=== PATIENT | female | born 1975 | race Caucasian/White ===

== ENCOUNTER 2020-03-02 10:43 | Outpatient (CLI) | payer OTHER, SELFPAY ==
[2020-03-02 11:12] LABS: Basophils Absolute Auto 0.1 K/mm3 (0.0-0.1); Eosinophils Absolute Auto 0.3 K/mm3 (0-0.3); Eosinophils Percent Auto 4.6 % (0-4.4); Hematocrit 41.5 % (37.0-47.0); Hemoglobin 13.3 g/dL (12.0-15.0); Immature Granulocyte Absolute 0.02 K/mm3 (0.00-0.031); Immature Granulocyte Percent A 0.3 % (0-0.5); Lymphocytes Absolute Auto 2.28 K/mm3 (0.9-3.2); Lymphocytes Percent Auto 34.2 % (18.3-44.2); Mean Corpuscular Hemoglobin 27.4 pg (26-34); Mean Corpuscular Volume 85.4 fl (80-100); Mean Platelet Volume 11.9 fl (7.4-10.4); Monocytes Absolute Auto 0.4 K/mm3 (0.1-0.6); Monocytes Percent Auto 6.4 % (2.6-8.5); Neutrophils Absolute Auto 3.6 K/mm3 (1.3-6.7); Neutrophils Percent Auto 53.5 % (45.5-73.1); Platelet Count Result 271 k/mm3 (150-375); Red Blood Count 4.86 M/mm3 (4.2-5.4); Red Cell Distribution Width 13.6 % (11.5-14.5); White Blood Count 6.7 K/mm3 (4.5-10.0)
[2020-03-02 11:21] LABS: Add Urine Microscopic? YES; Appearance Urine Cloudy (Clear); Bacteria Urine Trace /hpf; Bilirubin Urine Negative (Negative); Blood Urine Negative (Negative); Color Urine Straw (Yellow); Glucose Urine UA Negative (Negative); Ketones Urine Negative (Negative); Leukocyte Esterase Ur Negative LEU/UL (NEGATIVE); Nitrate Urine Negative (Negative); Protein Urine Negative (Negative); RBC Urine 0-2 /hpf (0-2); Specific Grav Ur 1.005 (1.001-1.035); Squamous Epithelial Cell Urine Many /hpf (Few); Urobilinogen Urine Negative mg/dL (<2.0); WBC Urine 0-3 /hpf (0-3)
[2020-03-02 11:41] LABS: Erythrocyte Sedimentation Rate 13 mm/hr (0-20)
[2020-03-02 13:45] LABS: Alanine Aminotransferase 14 U/L (4-35); Albumin Level 4.4 g/dL (3.5-5.1); Alkaline Phosphatase 87 U/L (38-126); Aspartate Amino Transferase 24 U/L (14-36); Bilirubin,Total 0.3 mg/dL (0.2-1.3); Blood Urea Nitrogen 10 mg/dL (7-17); Calcium 9.1 mg/dL (8.4-10.2); Carbon Dioxide 26 mmol/L (22-30); Chloride 102 mmol/L (98-107); Estimated Glomerular Filt Rate > 60; Glucose 105 mg/dL (65-105); Sodium 135 mmol/L (137-145)
[2020-03-06 20:41] LABS: CRP, High Sensitivity 0.6 mg/L (***)
== END 2020-03-02 10:44 | disposition home or self-care (01) ==
PROVIDERS: PCP Family Medicine; Visit Provider Family Medicine
DX: R53.81 Other malaise (principal); R53.83 Other fatigue; N39.0 Urinary tract infection, site not specified; R50.9 Fever, unspecified; R63.5 Abnormal weight gain
CPT/HCPCS: 36415; 80053; 81001; 84443; 85025; 85652; 86141; 87077; 87086; 87088

== ENCOUNTER → 2020-03-12 13:20 | Outpatient (CLI) | payer OTHER, SELFPAY ==
--- NOTE | ~2020-03-12 | US_ITS ---
EXAMINATION: US transvaginal EXAM DATE: 03/12/2020 13:59 INDICATION: Pelvic pain, hypertrophy of uterus. TECHNIQUE: Pelvic transvaginal sonogram was performed. There are multiple grayscale and Doppler imag es available for interpretation. Comparison is made to prior examination from 05/10/2018. FINDINGS: Uterus measures 7.2 x 4.2 cm, with several small fibroids suspected largest measuring abou t 2 cm and a smaller fibroid measuring about 1 cm. Endometrial stripe measures 11 mm, within normal l imits. There is no free pelvic fluid. Right adnexa: The ovary measures 3.1 x 2.2 x 2.9 cm and is morphologically normal. Ovarian vascular f low confirmed. Left adnexa: The ovary measures 2.0 x 1.9 x 2.0 cm and is morphologically normal. Ovarian vascular fl ow confirmed. IMPRESSION: Small fibroids. Reviewed, dictated and finalized at location A. IMPRESSION: Small fibroids.
== END ==
PROVIDERS: PCP Family Medicine; Visit Provider Family Medicine
DX: D25.9 Leiomyoma of uterus, unspecified (principal)
CPT/HCPCS: 76830

== ENCOUNTER → 2020-04-02 08:50 | Outpatient (CLI) | payer OTHER, SELFPAY ==
--- NOTE | ~2020-04-02 | MM_ITS ---
EXAMINATION: MM diagnostic jessica BI w kevin HISTORY: Probably benign focal asymmetry of right breast; six-month follow-up TECHNIQUE: 3-D tomosynthesis images of both breasts were performed and synthetic 2-D images were gene rated. CAD analysis was submitted and interpreted. COMPARISON: 09/07/2018 diagnostic right digital mammogram and limited right breast ultrasound 03/29/2019 diagnostic right digital mammogram BREAST PARENCHYMAL COMPOSITION: There are scattered areas of fibroglandular density. FINDINGS: No suspicious mass or architectural distortion, malignant calcification, skin thickening or retraction or significant new or developing density is detected. IMPRESSION: 1. No mammographic evidence of malignancy 2. Routine mammographic screening follow-up is recommended BI-RADS Category 1: Negative Reviewed, dictated and finalized at location A.
== END ==
PROVIDERS: PCP Family Medicine; Visit Provider Family Medicine
DX: R92.8 Other abnormal and inconclusive findings on diagnostic imaging of breast (principal)
CPT/HCPCS: 77062; 77066; G0279

== ENCOUNTER 2020-12-27 10:19 | Outpatient (CLI) | payer OTHER, SELFPAY ==
[2020-12-27 10:14] LABS: Basophils Absolute Auto 0.1 K/mm3 (0.0-0.1); Eosinophils Absolute Auto 0.3 K/mm3 (0-0.3); Eosinophils Percent Auto 3.7 % (0-4.4); Hematocrit 40.7 % (37.0-47.0); Hemoglobin 13.1 g/dL (12.0-15.0); Immature Granulocyte Absolute 0.02 K/mm3 (0.00-0.031); Immature Granulocyte Percent A 0.3 % (0-0.5); Lymphocytes Absolute Auto 2.36 K/mm3 (0.9-3.2); Lymphocytes Percent Auto 33.2 % (18.3-44.2); Mean Corpuscular HGB Conc 32.2 g/dl (32-36); Mean Corpuscular Hemoglobin 28.4 pg (26-34); Mean Corpuscular Volume 88.1 fl (80-100); Mean Platelet Volume 11.5 fl (7.4-10.4); Monocytes Absolute Auto 0.6 K/mm3 (0.1-0.6); Monocytes Percent Auto 8.7 % (2.6-8.5); Neutrophils Absolute Auto 3.8 K/mm3 (1.3-6.7); Neutrophils Percent Auto 53.1 % (45.5-73.1); Platelet Count Result 279 k/mm3 (150-375); Red Blood Count 4.62 M/mm3 (4.2-5.4); Red Cell Distribution Width 13.2 % (11.5-14.5); White Blood Count 7.1 K/mm3 (4.5-10.0)
[2020-12-27 10:26] LABS: Potassium 4.2 mmol/L (3.4-5.0)
[2020-12-27 10:32] LABS: Alanine Aminotransferase 14 U/L (4-35); Albumin Level 4.5 g/dL (3.5-5.1); Alkaline Phosphatase 95 U/L (38-126); Anion Gap 6 mmol/L (8-16); Aspartate Amino Transferase 25 U/L (14-36); Bilirubin,Total 0.3 mg/dL (0.2-1.3); Blood Urea Nitrogen 12 mg/dL (7-17); Calcium 9.6 mg/dL (8.4-10.2); Carbon Dioxide 27 mmol/L (22-30); Chloride 102 mmol/L (98-107); Estimated Glomerular Filt Rate 60; Glucose 98 mg/dL (65-105); Sodium 135 mmol/L (137-145)
[2020-12-27 11:34] LABS: Folic Acid 17.1 ng/mL (2.76->20)
[2020-12-27 17:06] LABS: Add Urine Microscopic? NO; Appearance Urine Clear (Clear); Bilirubin Urine Negative (Negative); Blood Urine Negative (Negative); Color Urine Straw (Yellow); Glucose Urine UA Negative (Negative); Ketones Urine Negative (Negative); Leukocyte Esterase Ur Negative LEU/UL (Negative); Nitrate Urine Negative (Negative); Protein Urine Negative (Negative); Urobilinogen Urine Negative mg/dL (<2.0)
[2020-12-27 17:42] LABS: Specific Grav Ur 1.003 (1.001-1.035)
== END 2020-12-27 10:20 | disposition home or self-care (01) ==
LOC: ANHLAB 10:19
PROVIDERS: PCP Family Medicine; Visit Provider Family Medicine
DX: I95.9 Hypotension, unspecified (principal); E53.8 Deficiency of other specified B group vitamins; E87.1 Hypo-osmolality and hyponatremia
CPT/HCPCS: 36415; 80053; 81003; 82607; 82746; 84443; 85025

== ENCOUNTER 2021-05-02 07:52 | Outpatient (CLI) | payer OTHER, SELFPAY ==
--- NOTE | ~2021-05-02 | MM_ITS ---
EXAMINATION: MM screening jessica BI w kevin HISTORY: Screening TECHNIQUE: Craniocaudal and mediolateral oblique 3-D tomosynthesis images were obtained and synthetic 2-D images were generated. CAD analysis was submitted and interpreted. COMPARISON: Comparison to multiple prior studies sequentially, with oldest reviewed study dated 08/26. BREAST PARENCHYMAL COMPOSITION: The breasts are heterogeneously dense, which may obscure small masses . FINDINGS: There is no evidence of suspicious mass, calcification, or architectural distortion to sugg est malignancy in either breast. There has been no suspicious interval change. IMPRESSION: 1. No mammographic evidence of malignancy. 2. Recommend routine screening mammography in one year. BI-RADS Category 1: Negative Reviewed, dictated and finalized at location A.
== END 2021-05-02 07:53 | disposition home or self-care (01) ==
PROVIDERS: PCP Family Medicine; Visit Provider Family Medicine
DX: Z12.31 Encounter for screening mammogram for malignant neoplasm of breast (principal)
CPT/HCPCS: 77063; 77067

== ENCOUNTER 2021-08-01 15:25 | Outpatient (CLI) | payer OTHER, SELFPAY ==
--- NOTE | ~2021-08-01 | US_ITS ---
EXAMINATION: US transvaginal DATE: 08/01/2021 16:01 INDICATION: Enlarged uterus. Comparison:Enlarged uterus TECHNIQUE: Multiple transabdominal and endovaginal sonographic images of the pelvis performed. FINDINGS: The uterus measures 8.7 x 3.9 x 4.7 cm. There are multiple ill-defined anomaly hypoechoic m asses of the uterus, consistent with fibroids. Largest fibroid measures 2.5 x 2.3 x 2.1 cm. There are multiple nabothian cysts. The endometrial complex measures 9 mm. The right ovary measures 2.4 x 1.7 x 2.7 cm and the left ovary measures 3.2 x 1.9 x 1.6 cm. There is a 1.5 cm left ovarian cyst. There are small follicles in each ovary. Normal doppler signal in both ov harmony. There is no free fluid in the pelvis. There are no abnormal masses seen on either side. IMPRESSION: 1. Multiple uterine fibroids, largest measuring up to 2.5 cm. 2: Left ovarian cyst measuring 1.5 cm. Reviewed, dictated and finalized at location A. R POLLUTION SCIENTIST
== END 2021-08-01 15:26 | disposition home or self-care (01) ==
LOC: ANHIMG 15:27
PROVIDERS: PCP Family Medicine; Visit Provider Family Medicine
DX: D25.9 Leiomyoma of uterus, unspecified (principal); N83.202 Unspecified ovarian cyst, left side
CPT/HCPCS: 76830

== ENCOUNTER 2022-07-01 09:05 | Outpatient (CLI) | payer OTHER, SELFPAY | END 2022-07-01 09:06 | disposition home or self-care (01) | LOC: ANHSURGERY 09:11 | PROVIDERS: PCP Family Medicine; Visit Provider Urology | DX: Z01.818 Encounter for other preprocedural examination (principal); N39.3 Stress incontinence (female) (male) | CPT/HCPCS: 87086; 87088 ==

== ENCOUNTER 2022-07-02 16:17 | Outpatient (CLI) | payer OTHER, SELFPAY ==
--- NOTE | ~2022-07-02 | MM_ITS ---
EXAMINATION: MM screening jessica BI w kevin HISTORY: Screening TECHNIQUE: Craniocaudal and mediolateral oblique 3-D tomosynthesis images were obtained and synthetic 2-D images were generated. CAD analysis was submitted and interpreted. COMPARISON: Comparison to multiple prior studies sequentially, with oldest reviewed study dated 08/26. BREAST PARENCHYMAL COMPOSITION: There are scattered areas of fibroglandular density. FINDINGS: There is no evidence of suspicious mass, calcification, or architectural distortion to sugg est malignancy in either breast. There has been no suspicious interval change. IMPRESSION: 1. No mammographic evidence of malignancy. 2. Recommend routine screening mammography in one year. BI-RADS Category 1: Negative Reviewed, dictated and finalized at location A. GRATION SPECIALIST
== END 2022-07-02 16:18 | disposition home or self-care (01) ==
PROVIDERS: PCP Family Medicine; Visit Provider Family Medicine
DX: Z12.31 Encounter for screening mammogram for malignant neoplasm of breast (principal)
CPT/HCPCS: 77063; 77067

== ENCOUNTER 2022-07-04 01:01 | Day surgery (SDC) | payer OTHER, SELFPAY ==
[2022-06-26 14:08] VITALS: BMI 27.1
--- NOTE | 2022-06-26 14:13 | PC.NURSE ---
Report to the Outpatient Waiting Room, entrance under the green pavilion located off [facility], at time 6:00 on date 07/04/22. Planned Procedure Time: 7:30. Time changes happen often and if your time is changed the preop area will call you the afternoon before. - You and your visitor will be asked to self-screen and do not enter if you have any COVID symptoms. - We encourage only one visitor and NO visitors under age 16 are allowed at this time. Your visitor will receive communication by the phone number that is given day of service. - The patient visitor is requested to social distance or may leave the building when not with patient due to restrictions. - A mask is OPTIONAL within the hospital. Patients may have clear liquids (water, carbonated beverages, clear teas, apple juice) until 3 hours prior to surgery (4:30) with a maximum of 20 ounces. - No food from midnight until time of surgery Take the following medications with a SIP of water the morning of surgery: INHALERS, SERTRALINE Medications to discontinue per physician: N/A Date to take last dose: N/A Please no make-up, nail brit[place] virgin islander, hairspray, perfume, deodorant, or body powder the day of surgery. No jewelry (including any body piercings) or valuables the day of surgery, leave them at home. Please take a shower or bath the night before, or the morning of, surgery with an antibacterial soap. Wear comfortable, loose fitting clothing. - Jewelry must be removed prior to entering the operating room. Rings and piercings that are not removed may be cut off. - The hospital will not accept responsibility for valuables. - Please leave all valuables, including medications, at home the day of surgery. If you are going home after surgery, a licensed tractor trailer moving van driver must drive you home. - NO public transportation without another adult. - We recommend that an adult stay with you for 24 hours following discharge. - We also recommend that you do not drive, make important decision, drink alcoholic beverages, or take any drugs that were not prescribed by your health care provider for at least 24 hours after your discharge time. Follow any additional instructions given to you from your surgeon. If you or anyone in your household have experienced Covid symptoms in the past week, please notify your surgeon or the nurse liaison at the phone number below for possible testing. Telephone instructions given to PT Namita SANTIAGO and asked if any additional questions and then verbalized understanding. Patient advised to call surgeon office or pre surgery nurse liaison [phone] if any additional questions.
--- NOTE | 2022-06-29 13:49 | PM.IMHP ---
H&P: HPI History of Present Illness Date/Time: 06/29/22 13:49 Chief Complaint: Incontinence Narrative: 46-year-old with confirmed stress incontinence. She desires surgical correction after discussion of all treatment options. She presents for urethral sling Review of Systems Review of Systems: All systems reviewed & are unremarkable except as noted in HPI and below PMFSH Past Medical History Medical History Allergic rhinitis TMJ arthritis Uterine fibroid Surgical History Surgical History History of hip surgery Family History Family History Father Hypertension Family history of diabetes mellitus in first degree relative Diabetes mellitus Grandparent Diabetes mellitus Hypertension Mother Breast cancer Other Carcinoma of colon Cerebrovascular accident Family history of arthritis Family history of heart disease in male family member before age 55 Social History Social History Social History: Smoking status: Never smoker Second hand tobacco smoke exposure: No Alcohol intake: current Alcohol use details: SELDOM Substance use: never Substance use type: does not use Gender identity (if verbalized by the patient): Female Sexual Orientation (if Verbalized by the Patient): Straight or Heterosexual Spiritual care concerns: No Meds Home Medications and Allergies Home Medications Medication Instructions Recorded Confirmed Type rizatriptan 10 mg disintegrating 10 mg PO .QD PRN migraine headache 09/13/21 06/26/22 Rx tablet #14 tabs scopolamine base 1 mg over 3 days 1 patch transdermal Q3D PRN motion 12/30/21 06/26/22 Rx transdermal patch sickness #12 ea levalbuterol tartrate 45 2 inh inhalation Q6H #15 grams 05/18/22 06/26/22 Rx mcg/actuation aerosol inhaler (Xopenex HFA) Mercedes-D 24 Hour 180 mg-240 mg 1 tablet PO DAILY #90 tabs 06/03/22 06/26/22 Rx tablet,extended release (fexofenadine-pseudoephedrine) budesonide-formoterol HFA 160 2 puff inhalation Q12H #10.2 grams 10/18/22 11/10/22 Rx mcg-4.5 mcg/actuation aerosol inhaler (Symbicort) sertraline 50 mg tablet See Rx Instructions .Route 06/26/22 06/26/22 Rx .COMPLEX #90 tabs Allergies Allergy/AdvReac Type Severity Reaction Status Date / Time cat dander Allergy Mild sneeze Verified 06/18/21 09:28 grass pollen Allergy Mild sneeze Verified 06/18/21 09:28 iohexol Allergy Anaphylaxis Verified 06/26/22 14:07 [From contrast - CT, X-RAY] Exam Narrative: no acute distress normal breathing alert and oriented x3 positive urethral mobility Assessment and Plan Assessment and plan (1) Stress incontinence (female) (male): Code(s): N39.3 - Stress incontinence (female) (male) Status: Acute Assessment and Plan: urethral sling. Understands risks of bleeding, infection, lack of efficacy, recurrence, persistence, hip and leg pain, dyspareunia, mesh extrusion or erosion. Need for ancillary procedures. She agrees to proceed
--- NOTE | 2022-07-03 14:09 | WPDANESEPPF ---
Anes - Initial Pre Proc Eval Procedure: Operation Date: 07/04/22 07:30 Proposed Procedures p Urethral Sling - Obey Larios MD Date/Time: 07/03/22 14:09 Surgeon: Obey Larios MD Pre Op Diagnosis: Stress Incont Patient Data Age: 46 Gender: F Height: 1.68 m Weight: 76.2 kg Allergies Allergy/AdvReac Type Severity Reaction Status Date / Time cat dander Allergy Mild triggers Verified 07/04/22 06:20 asthma attack grass pollen Allergy Mild sneeze Verified 06/18/21 09:28 iohexol Allergy chest and Verified 07/04/22 06:20 [From contrast - CT, X-RAY] neck tightness/neck itching Home Medications Medication Instructions Recorded Confirmed Type rizatriptan 10 mg disintegrating 10 mg PO .QD PRN migraine headache 09/13/21 07/04/22 Rx tablet #14 tabs levalbuterol tartrate 45 2 inh inhalation Q6H #15 grams 05/18/22 07/04/22 Rx mcg/actuation aerosol inhaler (Xopenex HFA) Mercedes-D 24 Hour 180 mg-240 mg 1 tablet PO DAILY #90 tabs 06/03/22 07/04/22 Rx tablet,extended release (fexofenadine-pseudoephedrine) budesonide-formoterol HFA 160 2 puff inhalation Q12H #10.2 grams 06/03/22 07/04/22 Rx mcg-4.5 mcg/actuation aerosol inhaler (Symbicort) sertraline 50 mg tablet See Rx Instructions .Route 06/26/22 07/04/22 Rx .COMPLEX #90 tabs Patient hx anesthesia problems: none Family hx anesthesia problems: none Results Review: All pre-operative results and documents have been reviewed as part of the pre-operative evaluation. [facility] Past Medical History Medical History (Updated 07/03/22 @ 14:10 by Stef Ugalde MD) Allergic rhinitis Anxiety Asthma Depression Stress incontinence (female) (male) TMJ arthritis Uterine fibroid Surgical History Surgical History History of hip surgery Family History Family History Father Hypertension Family history of diabetes mellitus in first degree relative Diabetes mellitus Grandparent Diabetes mellitus Hypertension Mother Breast cancer Other Carcinoma of colon Cerebrovascular accident Family history of arthritis Family history of heart disease in male family member before age 55 Social History Social History Social History: Smoking status: Never smoker Second hand tobacco smoke exposure: No Alcohol intake: current Alcohol use details: SELDOM Substance use: never Substance use type: does not use Living arrangements: with family Gender identity (if verbalized by the patient): Female Sexual Orientation (if Verbalized by the Patient): Straight or Heterosexual Spiritual care concerns: No Anes - Eval Final PreProcedure Day of Procedure 07/03/22 14:09 Patient weight: overweight Heart: regular rate and rhythm Lungs: clear to auscultation and normal air movement Airway: Mallampati scale class II Neurological: alert and oriented Last oral intake: >/= 8 hours ASA classification: II Emergent: no Anesthetic plan: proceed Anesthesia type and monitoring: general GIVS and LMA Results Review: All pre-operative results and documents have been reviewed as part of the pre-operative evaluation. Informed Consent: The patient's anesthetic plan and its attendant risks and benefits were discussed with the patient/family/POA. Questions were solicited and answers provided to the satisfaction of the patient/family/POA.
[2022-07-04 06:16] VITALS: BP 116/69; PULSE 83; RESP 16; TEMP 36.6; O2SAT 98
[2022-07-04] MEDS: LACTATED RINGERS 1,000 ML 30 ML IV CONT ×2 (06:40→08:27)
--- NOTE | 2022-07-04 07:11 | WPDHPUPDATE1 ---
History and Physical Update Update Date/Time: 07/04/22 07:11 History and Physical has been reviewed, including an updated exam of the patient. There are NO changes in the patient's condition. Risks, benefits, and alternatives have been discussed and questions answered. Patient agrees to proceed with procedure.
[2022-07-04] MEDS: ceFAZolin 2 GM/D5W 50 ML 2 GM/50 ML BAG IVPB (07:28)
[2022-07-04] MEDS: LIDO 2%/EPINEPHRINE 1:100,000 50 ML VIAL 10 ML INFILTRATE (07:45)
[2022-07-04 08:00] VITALS: BP 82/46; PULSE 88; RESP 14; O2SAT 100
--- NOTE | 2022-07-04 08:10 | W.PM.PROC2 ---
Procedure Note - Detailed Date of Procedure 07/04/22 Pre-op Diagnosis Stress Incontinence Post-op Diagnosis Same Procedure Performed mid urethral sling (TOT) cystoscopy Surgeon Obey Larios MD Anesthesia MAC and Local Indications This is a female with confirm stress urinary incontinence. She desires surgical correction. She understands the risks of bleeding, infection, injury to the urinary tract, vaginal mesh extrusion, urinary tract mesh erosion, obstructive voiding requiring a secondary procedure, hip and leg pain, dyspareunia, inability to improve overactive bladder symptoms. She agrees to proceed. Findings Uncomplicated urethral sling. Urethral hypermobility is present Description of Procedure She was correctly identified. Informed consent obtained. She was brought the operating room. She was given appropriate anesthesia. She was given appropriate perioperative antibiotics. A time-out performed. I marked out the site of the inner thigh incisions. I anesthetized the skin and made those incisions. I anesthetized the anterior vaginal wall over the mid urethra. I made a 1 cm incision. I dissected out laterally taking great care not to injure the refilled vaginal wall. I passed the helical trocars. First on the left. Then on the right. I did this from the thigh incision towards the vaginal incision. The sling was connected to the trocars and brought out through the thigh incision. I tensioned the sling appropriately. I cut and the plastic sheaths. I then closed the incision with 2 0 Vicryl. On cystoscopy there is no tumors or surgical artifact. The bladder was entirely normal. There was no surgical artifact in the urethra. I cut the excess sling material. Close incisions with glue. She was awakened and transferred to the PACU in stable condition. Implants Urethral sling Estimated Blood Loss -40.0 Drains No Packing No Pathology None sent Complications No immediate complications Condition Stable Disposition PACU
[2022-07-04 08:15] VITALS: BP 97/65; PULSE 80; RESP 14; O2SAT 99
[2022-07-04 08:45] VITALS: BP 101/72; PULSE 80; RESP 14
== END 2022-07-04 09:02 | disposition home or self-care (01) ==
PROVIDERS: PCP Family Medicine; Visit Provider Urology
PROC: (CPT 57288; principal; 2022-07-04 07:30)
DX: N39.3 Stress incontinence (female) (male) (principal); Z79.51 Long term (current) use of inhaled steroids; J45.909 Unspecified asthma, uncomplicated; F41.9 Anxiety disorder, unspecified; F32.A Depression, unspecified
CPT/HCPCS: 57288; C1771; J0690; J2250; J2704; J3010; J7030; J7120

== ENCOUNTER 2022-11-28 00:15 | Day surgery (SDC) | payer OTHER, SELFPAY ==
[2022-11-17 09:01] VITALS: BMI 26.6
--- NOTE | 2022-11-27 14:21 | PM.HPGS ---
History of Present Illness History of Present Illness Consent: Risks, benefits, and alternatives have been discussed and questions answered. Patient agrees to proceed with procedure. Chief complaint: neoplasm screening Narrative: Barbie Ruvalcaba is a 47 year old female Referred for colon cancer screening. Review of Systems Review of Systems: All systems reviewed & are unremarkable except as noted in HPI and below PMFSH Past Medical History Medical History Allergic rhinitis Anxiety Asthma Depression Stress incontinence (female) (male) TMJ arthritis Uterine fibroid Surgical History Surgical History History of hip surgery Family History Family History Father Hypertension Family history of diabetes mellitus in first degree relative Diabetes mellitus Grandparent Diabetes mellitus Hypertension Mother Breast cancer Other Carcinoma of colon Cerebrovascular accident Family history of arthritis Family history of heart disease in male family member before age 55 Social History Social History Social History: Smoking status: Never smoker Second hand tobacco smoke exposure: No Alcohol intake: current Alcohol use details: SELDOM Substance use: never Substance use type: does not use Living arrangements: with family Occupation/Education: occupation Gender identity (if verbalized by the patient): Female Sexual Orientation (if Verbalized by the Patient): Straight or Heterosexual Spiritual care concerns: No Meds Home Medications and Allergies Home Medications Medication Instructions Recorded Confirmed Type rizatriptan 10 mg disintegrating 10 mg PO .QD PRN migraine headache 09/13/21 11/17/22 Rx tablet #14 tabs Mercedes-D 24 Hour 180 mg-240 mg 1 tablet PO DAILY #90 tabs 09/05/22 11/17/22 Rx tablet,extended release (fexofenadine-pseudoephedrine) budesonide-formoterol HFA 160 2 puff inhalation Q12H PRN Allergy 11/17/22 11/17/22 History mcg-4.5 mcg/actuation aerosol Symptoms inhaler (Symbicort) levalbuterol tartrate 45 2 inh inhalation Q6H PRN Allergy 11/17/22 11/17/22 History mcg/actuation aerosol inhaler Symptoms (Xopenex HFA) sertraline 50 mg tablet 50 mg PO DAILY 11/17/22 11/17/22 History Allergies Allergy/AdvReac Type Severity Reaction Status Date / Time cat dander Allergy Mild triggers Verified 11/28/22 09:14 asthma attack grass pollen Allergy Mild sneeze Verified 11/28/22 09:14 iohexol Allergy chest and Verified 11/28/22 09:14 [From contrast - CT, X-RAY] neck tightness/neck itching Exam Resp: Auscultation: clear to auscultation bilaterally Cardio: Rate: regular rate Rhythm: regular rhythm GI: GI Palp: Yes Soft to palpation and No Tenderness to palpation present (GI) Assessment and Plan Assessment and plan (1) Colon cancer screening: Code(s): Z12.11 - Encounter for screening for malignant neoplasm of colon Status: Acute Assessment and Plan: Colonoscopy with possible biopsy or polypectomy or cautery or injection of substances.
[2022-11-28] MEDS: LACTATED RINGERS 1,000 ML 150 ML IV CONT (09:13)
[2022-11-28 09:15] VITALS: BP 110/69; PULSE 78; RESP 18; TEMP 36.4; O2SAT 99
--- NOTE | 2022-11-28 09:45 | WPDANESEPPF ---
Anes - Initial Pre Proc Eval Procedure: Operation Date: 11/28/22 11:15 Proposed Procedures p Screening Colonoscopy - Mc Mojica MD Date/Time: 11/28/22 09:45 Surgeon: Mc Mojica MD Pre Op Diagnosis: neoplasm screening Patient Data Age: 47 Gender: F Height: 1.68 m Weight: 77.7 kg Last Vital Signs Temp 97.6 F 11/28/22 09:15 Pulse 78 11/28/22 09:15 Resp 18 11/28/22 09:15 BP 110/69 11/28/22 09:15 Pulse Ox 99 11/28/22 09:15 O2 Del Method Room Air 11/28/22 09:15 Allergies Allergy/AdvReac Type Severity Reaction Status Date / Time cat dander Allergy Mild triggers Verified 11/28/22 09:14 asthma attack grass pollen Allergy Mild sneeze Verified 11/28/22 09:14 iohexol Allergy chest and Verified 11/28/22 09:14 [From contrast - CT, X-RAY] neck tightness/neck itching Home Medications Medication Instructions Recorded Confirmed Type rizatriptan 10 mg disintegrating 10 mg PO .QD PRN migraine headache 09/13/21 11/17/22 Rx tablet #14 tabs Mercedes-D 24 Hour 180 mg-240 mg 1 tablet PO DAILY #90 tabs 09/05/22 11/17/22 Rx tablet,extended release (fexofenadine-pseudoephedrine) budesonide-formoterol HFA 160 2 puff inhalation Q12H PRN Allergy 11/17/22 11/17/22 History mcg-4.5 mcg/actuation aerosol Symptoms inhaler (Symbicort) levalbuterol tartrate 45 2 inh inhalation Q6H PRN Allergy 11/17/22 11/17/22 History mcg/actuation aerosol inhaler Symptoms (Xopenex HFA) sertraline 50 mg tablet 50 mg PO DAILY 11/17/22 11/17/22 History Patient hx anesthesia problems: none Family hx anesthesia problems: none Results Review: All pre-operative results and documents have been reviewed as part of the pre-operative evaluation. [facility] Past Medical History Medical History (Updated 10/14/22 @ 07:32 by Salome Atwood MD) Allergic rhinitis Anxiety Asthma Depression Stress incontinence (female) (male) TMJ arthritis Uterine fibroid Surgical History Surgical History History of hip surgery Family History Family History Father Hypertension Family history of diabetes mellitus in first degree relative Diabetes mellitus Grandparent Diabetes mellitus Hypertension Mother Breast cancer Other Carcinoma of colon Cerebrovascular accident Family history of arthritis Family history of heart disease in male family member before age 55 Social History Social History Social History: Smoking status: Never smoker Second hand tobacco smoke exposure: No Alcohol intake: current Alcohol use details: SELDOM Substance use: never Substance use type: does not use Living arrangements: with family Occupation/Education: occupation Gender identity (if verbalized by the patient): Female Sexual Orientation (if Verbalized by the Patient): Straight or Heterosexual Spiritual care concerns: No Anes - Eval Final PreProcedure Day of Procedure 11/28/22 09:45 Patient weight: normal Heart: regular rate and rhythm Lungs: clear to auscultation Airway: Mallampati scale class II Neurological: alert and oriented Last oral intake: >/= 8 hours ASA classification: II Emergent: no Anesthetic plan: proceed Anesthesia type and monitoring: general GIVS and standard monitoring Results Review: All pre-operative results and documents have been reviewed as part of the pre-operative evaluation. Informed Consent: The patient's anesthetic plan and its attendant risks and benefits were discussed with the patient/family/POA. Questions were solicited and answers provided to the satisfaction of the patient/family/POA.
[2022-11-28 10:21] VITALS: BP 94/62; PULSE 79; RESP 20; O2SAT 100
[2022-11-28 10:31] VITALS: BP 99/64; PULSE 70; RESP 20; O2SAT 99
== END 2022-11-28 10:56 | disposition home or self-care (01) ==
PROVIDERS: PCP Family Medicine; Visit Provider Internal Medicine Gastroenterology
PROC: 0DJD8ZZ Inspection of Lower Intestinal Tract, Via Natural or Artificial Opening Endoscopic (ICD-10-PCS; CPT 45378; principal; 2022-11-28 11:15)
DX: Z12.11 Encounter for screening for malignant neoplasm of colon (principal); J45.909 Unspecified asthma, uncomplicated; F41.9 Anxiety disorder, unspecified; F32.A Depression, unspecified; Z79.51 Long term (current) use of inhaled steroids
CPT/HCPCS: 45378; J2704; J7120

== ENCOUNTER 2023-09-18 14:09 | Outpatient (CLI) | payer OTHER, SELFPAY ==
--- NOTE | ~2023-09-18 | MM_ITS ---
EXAMINATION: MM screening jessica BI w kevin HISTORY: Screening TECHNIQUE: Craniocaudal and mediolateral oblique 3-D tomosynthesis images were obtained and synthetic 2-D images were generated. CAD analysis was submitted and interpreted. COMPARISON: Comparison to multiple prior studies sequentially, with oldest reviewed study dated 08/26. BREAST PARENCHYMAL COMPOSITION: There are scattered areas of fibroglandular density. FINDINGS: There is no evidence of suspicious mass, calcification, or architectural distortion to sugg est malignancy in either breast. There has been no suspicious interval change. IMPRESSION: 1. No mammographic evidence of malignancy. 2. Recommend routine screening mammography in one year. BI-RADS Category 1: Negative Reviewed, dictated and finalized at location A. [employer]
== END 2023-09-18 14:10 | disposition home or self-care (01) ==
LOC: ANHIMG 14:13
PROVIDERS: PCP Family Medicine; Visit Provider Family Medicine
DX: Z12.31 Encounter for screening mammogram for malignant neoplasm of breast (principal)
CPT/HCPCS: 77063; 77067

== ENCOUNTER 2023-10-30 07:33 | Outpatient (CLI) | payer OTHER, SELFPAY ==
[2023-10-30 08:16] LABS: Basophils Absolute Auto 0.1 K/mm3 (0.0-0.1); Basophils Percent Auto 0.9 % (0.2-1.2); Eosinophils Absolute Auto 0.3 K/mm3 (0-0.3); Eosinophils Percent Auto 3.9 % (0-4.4); Hematocrit 43.8 % (37.0-47.0); Hemoglobin 14.1 g/dL (12.0-15.0); Immature Granulocyte Absolute 0.08 K/mm3 (0.00-0.031); Immature Granulocyte Percent A 1.2 % (0-0.5); Lymphocytes Absolute Auto 2.45 K/mm3 (0.9-3.2); Lymphocytes Percent Auto 36.4 % (18.3-44.2); Mean Corpuscular HGB Conc 32.2 g/dl (32-36); Mean Corpuscular Hemoglobin 29.6 pg (26-34); Mean Platelet Volume 11.8 fl (7.4-10.4); Monocytes Absolute Auto 0.6 K/mm3 (0.1-0.6); Monocytes Percent Auto 8.2 % (2.6-8.5); Neutrophils Absolute Auto 3.3 K/mm3 (1.3-6.7); Neutrophils Percent Auto 49.4 % (45.5-73.1); Platelet Count Result 286 k/mm3 (150-375); Red Blood Count 4.76 M/mm3 (4.2-5.4); Red Cell Distribution Width 12.1 % (11.5-14.5); White Blood Count 6.7 K/mm3 (4.5-10.0)
[2023-10-30 08:24] LABS: Alanine Aminotransferase 17 U/L (6-35); Albumin Level 4.5 g/dL (3.5-5.1); Alkaline Phosphatase 81 U/L (38-126); Anion Gap 5 mmol/L (8-16); Aspartate Amino Transferase 23 U/L (14-36); Bilirubin,Total 0.5 mg/dL (0.2-1.3); Blood Urea Nitrogen 15 mg/dL (7-17); Calcium 9.2 mg/dL (8.4-10.2); Carbon Dioxide 28 mmol/L (22-30); Chloride 104 mmol/L (98-107); Cholesterol 196 mg/dL (0-200); Estimated Glomerular Filt Rate > 60; Glucose 95 mg/dL (65-110); HDL Direct 53 mg/dL; Potassium 4.2 mmol/L (3.4-5.0); Sodium 137 mmol/L (137-145); Triglycerides 71 mg/dL (<150)
[2023-10-30 08:26] LABS: Hemoglobin A1C 5.6 % (<5.7)
[2023-10-30 08:35] LABS: LDL Cholesterol Direct 124 mg/dL
== END 2023-10-30 07:34 | disposition home or self-care (01) ==
PROVIDERS: PCP Family Medicine; Visit Provider Family Medicine
DX: Z00.00 Encounter for general adult medical examination without abnormal findings (principal); E03.9 Hypothyroidism, unspecified; E78.2 Mixed hyperlipidemia; E11.9 Type 2 diabetes mellitus without complications; J45.909 Unspecified asthma, uncomplicated; I95.9 Hypotension, unspecified; I10 Essential (primary) hypertension; F41.9 Anxiety disorder, unspecified; F32.A Depression, unspecified; D64.9 Anemia, unspecified; D25.9 Leiomyoma of uterus, unspecified
CPT/HCPCS: 36415; 80053; 80061; 83036; 84443; 85025

== ENCOUNTER 2024-08-05 08:05 | Outpatient (CLI) | payer OTHER, SELFPAY ==
--- NOTE | ~2024-08-05 | XR_ITS ---
XR foot LT min 3V, XR ankle LT min 3V 08/05/2024 08:27 Indication: Left foot and ankle pain after twisting injury Procedure: 4 views of the foot and ankle each Comparison: No prior studies for comparison. Findings: Lisfranc joint intact. Ankle mortise within normal limits. Talar dome is normal. No fractur e, subluxation or dislocation. Impression: 1: No acute bone or joint abnormality. Reviewed, dictated and finalized at location B. TO WALL CARPET INSTALLER Impression: 1: No acute bone or joint abnormality. Impression: 1: No acute bone or joint abnormality.
== END 2024-08-05 08:06 | disposition home or self-care (01) ==
PROVIDERS: PCP Family Medicine; Visit Provider Family Medicine
DX: S99.919A Unspecified injury of unspecified ankle, initial encounter (principal); S99.922A Unspecified injury of left foot, initial encounter; X58.XXXA Exposure to other specified factors, initial encounter
CPT/HCPCS: 73610; 73630

== ENCOUNTER 2024-09-29 07:09 | Outpatient (CLI) | payer OTHER, SELFPAY ==
--- NOTE | ~2024-09-29 | MR_ITS ---
MRI of the left ankle Clinical history: Arthralgia Technique: Coronal proton-density and proton-density fat-sat images, axial proton-density and proton- density fat-sat images, and sagittal proton-density and proton-density fat-sat images were acquired. Findings: Syndesmotic ligaments are intact. There is thickening and increased signal of the anterior talofibular ligament and calcaneofibular ligament, compatible with sequelae of lateral ankle sprain. Posterior talofibular ligament is intact. Deltoid ligament is intact. Medial flexor tendons, peroneal tendons, anterior extensor tendons, and Achilles tendon are intact. There is no osteochondral lesion of the talar dome. Bone marrow signals are intact. Joint spaces are intact. Small tibiotalar joint effusion present. Plantar fascia intact. No soft tissue mass or fluid collection evident otherwise. Impression: Thickening and increased signal of the anterior talofibular and calcaneofibular ligaments are compati ble with recent lateral ankle sprain. No complete tear of the ligaments is evident. Small tibiotalar joint effusion. Reviewed, dictated and finalized at location . MANAGER Impression: Thickening and increased signal of the anterior talofibular and calcaneofibular ligaments are compatible with recent lateral ankle sprain. No complete tear of the ligaments is evident. Small tibiotalar joint effusion.
== END 2024-09-29 07:10 | disposition home or self-care (01) ==
LOC: MICIMG 07:10
PROVIDERS: PCP Family Medicine; Visit Provider Podiatrist Foot & Ankle Surgery
DX: S93.402D Sprain of unspecified ligament of left ankle, subsequent encounter (principal); X58.XXXA Exposure to other specified factors, initial encounter; M24.272 Disorder of ligament, left ankle; M25.472 Effusion, left ankle
CPT/HCPCS: 73721

== ENCOUNTER 2024-12-06 13:20 | Outpatient (CLI) | payer OTHER, SELFPAY ==
--- NOTE | ~2024-12-06 | MM_ITS ---
EXAMINATION: MM screening [facility] BI w kevin HISTORY: Screening TECHNIQUE: Craniocaudal and mediolateral oblique 3-D tomosynthesis images were obtained and synthetic 2-D images were generated. CAD analysis was submitted and interpreted. COMPARISON: Comparison to multiple prior studies sequentially, with oldest reviewed study dated 03/29. BREAST PARENCHYMAL COMPOSITION: Not dense: There are scattered areas of fibroglandular density. FINDINGS: There is no evidence of suspicious mass, calcification, or architectural distortion to sugg est malignancy in either breast. There has been no suspicious interval change. IMPRESSION: 1. No mammographic evidence of malignancy. 2. Recommend routine screening mammography in one year. BI-RADS Category 1: Negative Reviewed, dictated and finalized at location A.
== END 2024-12-06 13:21 | disposition home or self-care (01) ==
LOC: MICIMG 13:21
PROVIDERS: PCP Family Medicine; Visit Provider Family Medicine
DX: Z12.31 Encounter for screening mammogram for malignant neoplasm of breast (principal)
CPT/HCPCS: 77063; 77067